=== PATIENT | female | born 1995 | race African-American/Black ===

== ENCOUNTER → 2016-12-02 | Outpatient (CLI) | payer BC ==
--- NOTE | 2016-12-02 15:44 | DIAGNOSTIC IMAGING REPORT ---
PELVIS MIN 3 VIEWS CLINICAL HISTORY: GROIN PAIN COMPARISON STUDY: Left hip MRI 03/03/2016. Left hip 03/03/2016. FINDINGS: AP view of the pelvis with flexion views of the bilateral hips. There is asymmetric sclerosis seen within the left medial pubic bones adjacent to the symphysis pubis. This remains unchanged. No acute fracture or dislocation within the pelvis or hips. Cartilage spaces are maintained. The sacrum is intact. IMPRESSION: Redemonstration of the asymmetric sclerosis within the medial left pubic bones adjacent to the symphysis pubis. This remains unchanged and is consistent with stress-related changes/osteitis pubis. No acute fracture or dislocation within the pelvis or hips. Electronically signed by: Earl Anderson M.D. 12/02/2016 3:42 PM
== END | disposition home or self-care (01) ==
LOC: C.RDSM 09:28
PROVIDERS: ATTEND Internal Medicine
DX: R10.30 Lower abdominal pain, unspecified (principal)